=== PATIENT | female | born 1985 | race Caucasian/White ===

== ENCOUNTER 2016-07-22 21:15 | Emergency (ER) | payer OTHER, SELFPAY ==
--- NOTE | 2016-07-23 07:25 | RAD ---
RIGHT WRIST 3 VIEWS: Date: 07/22/16 FINDINGS: No fracture, dislocation, or carpal abnormality seen. All bones currently appear intact. IMPRESSION: No acute findings. POS: [facility]
== END 2016-07-22 21:47 | disposition home or self-care (01) ==
LOC: BURERS 21:15
DX: S63.501A Unspecified sprain of right wrist, initial encounter (principal); E03.9 Hypothyroidism, unspecified; F17.210 Nicotine dependence, cigarettes, uncomplicated; Z79.899 Other long term (current) drug therapy; W22.8XXA Striking against or struck by other objects, initial encounter
CPT/HCPCS: 99283

== ENCOUNTER 2016-08-04 11:23 | Outpatient (CLI) | payer OTHER ==
[2016-08-04 12:04] LABS: #Basophils 0.1 thou/uL (0.0-0.2); #Eosinphils 0.1 thou/uL (0.0-0.7); #Lymphocytes 3.1 thou/uL (1.20-3.40); #Monocytes 0.5 thou/uL (0.11-0.59); #Neutrophils 4.5 thou/uL (1.40-6.50); %Basophils 0.7 % (0.0-1.0); %Eosinophils 1.8 % (0.0-10.0); %Lymphocytes 37.7 % (21.0-51.0); %Monocytes 5.5 % (0.0-10.0); %Neutrophils 54.3 % (42.0-75.0); Hemoglobin 13.5 g/dL (12.0-16.0); Mean Corpuscular HGB CONC 32.9 g/dL (32.0-36.0); Mean Corpuscular Hemoglobin 28.5 pg (27.0-31.0); Mean Corpuscular Volume 86.7 fl (81.0-99.0); Mean Platelet Volume 9.6 fL (7.4-10.4); Platelet Count 234 thou/uL (130-400); RBC Distribution Width 12.2 % (11.5-14.5); Red Blood Cell (RBC) Count 4.73 mill/uL (4.20-5.40); White Blood Cell (WBC) Count 8.2 thou/uL (4.8-10.8)
[2016-08-04 12:13] LABS: ALT (SGPT) 130 U/L (0-55); AST (SGOT) 88 U/L (5-34); Albumin 4.3 g/dL (3.5-5.0); Alkaline Phosphatase 88 U/L (40-150); Anion Gap 13 mmol/L (10-20); BUN (Urea Nitrogen) 12 mg/dL (7.0-18.7); Bilirubin, Total 0.3 mg/dL (0.2-1.2); Calc. Creatinine Clearance 0 mL/min (70-130); Calcium 9.2 mg/dL (7.8-10.44); Carbon Dioxide 24 mmol/L (22-29); Cardiac Risk 3.7 (Less than 4.5); Chloride 108 mmol/L (98-107); Cholesterol 162 mg/dL (< 200 Desired); Estimated GFR-MDRD 90; Globulin 2.7 g/dL (2.4-3.5); Glucose 172 mg/dL (70-105); HDL Cholesterol 44 mg/dL (>60 Neg Risk); LDL Cholesterol, Calculated 67 mg/dL; Potassium 4.4 mmol/L (3.5-5.1); Sodium 141 mmol/L (136-145); Triglycerides 255 mg/dL (Less than 150)
[2016-08-04 12:34] LABS: Free T4 (Free Thyroxine) 0.91 ng/dL (0.70-1.48); Thyroid Stimulating Hormone 1.4396 uIU/mL (0.35-4.94)
== END 2016-08-04 11:24 | disposition home or self-care (01) ==
LOC: HPCALD 11:23
PROVIDERS: ATTEND Physician Assistant
DX: E03.9 Hypothyroidism, unspecified (principal); Z68.42 Body mass index [BMI] 45.0-49.9, adult
CPT/HCPCS: 36415; 80053; 80061; 84439; 84443; 85025

== ENCOUNTER 2016-09-06 10:04 | Outpatient (CLI) | payer OTHER ==
[2016-09-06 10:47] LABS: Hemoglobin A1c 6.1 % (4.0-6.0)
[2016-09-06 10:49] LABS: ALT (SGPT) 121 U/L (8-55); AST (SGOT) 72 U/L (5-34); Alkaline Phosphatase 90 U/L (40-150); Anion Gap 15 mmol/L (10-20); BUN (Urea Nitrogen) 16 mg/dL (7.0-18.7); Bilirubin, Total 0.4 mg/dL (0.2-1.2); Calc. Creatinine Clearance 0 mL/min (70-130); Calcium 8.9 mg/dL (7.8-10.44); Carbon Dioxide 23 mmol/L (22-29); Chloride 109 mmol/L (98-107); Estimated GFR-MDRD Greater than 90; Globulin 2.5 g/dL (2.4-3.5); Glucose 115 mg/dL (70-105); Potassium 4.5 mmol/L (3.5-5.1); Protein, Total 6.5 g/dL (6.0-8.3)
[2016-09-06 11:07] LABS: Sodium 142 mmol/L (136-145)
== END 2016-09-06 10:05 ==
LOC: HPCALD 10:04
PROVIDERS: ATTEND Physician Assistant
DX: R73.09 Other abnormal glucose (principal)
CPT/HCPCS: 36415; 80053; 83036

== ENCOUNTER 2017-04-07 09:01 | Emergency (ER) | payer OTHER ==
[2017-04-07 09:40] LABS: #Monocytes 0.3 thou/uL (0.11-0.59); #Neutrophils 2.8 thou/uL (1.40-6.50); %Basophils 0.5 % (0.0-1.0); %Eosinophils 0.4 % (0.0-10.0); %Lymphocytes 23.5 % (21.0-51.0); %Monocytes 7.5 % (0.0-10.0); %Neutrophils 68.1 % (42.0-75.0); Hemoglobin 14.2 g/dL (12.0-16.0); Mean Corpuscular HGB CONC 33.1 g/dL (32.0-36.0); Mean Corpuscular Hemoglobin 28.2 pg (27.0-31.0); Mean Corpuscular Volume 85.2 fl (81.0-99.0); Mean Platelet Volume 7.7 fL (7.4-10.4); Platelet Count 185 thou/uL (130-400); RBC Distribution Width 12.9 % (11.5-14.5); Red Blood Cell (RBC) Count 5.04 mill/uL (4.20-5.40)
[2017-04-07 09:48] LABS: Bilirubin Negative (Negative); Blood, Urine Negative (Negative); Clarity Slightly Cloudy (Clear); Glucose, Urine (Dipstick) Negative (Negative); Leukocyte Trace (Negative); Nitrite Negative (Negative); Protein, Urine (Dipstick) 100 mg/dL (Neg-Trace); Specific Gravity, Urine 1.025 (1.005-1.030); Urobilinogen 0.2 mg/dL (0.2-1.0); pH, Urine 6.5 (5.0-9.0)
[2017-04-07 09:51] LABS: ALT (SGPT) 180 U/L (8-55); AST (SGOT) 121 U/L (5-34); Alkaline Phosphatase 106 U/L (40-150); Anion Gap 15 mmol/L (10-20); BUN (Urea Nitrogen) 12 mg/dL (7.0-18.7); Bilirubin, Total 0.4 mg/dL (0.2-1.2); Calc. Creatinine Clearance 0 mL/min (70-130); Calcium 9.1 mg/dL (7.8-10.44); Carbon Dioxide 21 mmol/L (22-29); Chloride 105 mmol/L (98-107); Estimated GFR-MDRD Greater than 90; Globulin 3.7 g/dL (2.4-3.5); Glucose 168 mg/dL (70-105); Potassium 4.2 mmol/L (3.5-5.1); Protein, Total 7.7 g/dL (6.0-8.3); Sodium 137 mmol/L (136-145)
[2017-04-07 10:03] LABS: Bacteria/HPF 2+ HPF (None Seen); RBC/HPF None Seen HPF (0-3); Transitional Epithelial 0-3 HPF (0-3); WBC/HPF 0-3 HPF (0-3)
[2017-04-07 10:04] LABS: Crystals/HPF 1+ AMORPH URATES HPF (Negative)
== END 2017-04-07 10:12 | disposition home or self-care (01) ==
LOC: BURERS 09:01
DX: B34.9 Viral infection, unspecified (principal); E03.9 Hypothyroidism, unspecified; Z79.899 Other long term (current) drug therapy
CPT/HCPCS: 36415; 80053; 81003; 81015; 85025; 99284

== ENCOUNTER 2017-05-26 12:13 | Emergency (ER) | payer OTHER | END 2017-05-26 12:55 | disposition home or self-care (01) | LOC: BURERS 12:13 | DX: J11.1 Influenza due to unidentified influenza virus with other respiratory manifestations (principal); G43.909 Migraine, unspecified, not intractable, without status migrainosus; E03.9 Hypothyroidism, unspecified | CPT/HCPCS: 99283 ==

== ENCOUNTER 2017-08-03 13:54 | Outpatient (CLI) | payer OTHER ==
--- NOTE | 2017-08-03 19:55 | RAD ---
CHEST TWO VIEWS: 08/03/17 Comparison is made with the prior study of 06/10/[address] [facility]. The heart size is normal. There are no congestive changes or pleural effusions. No lobar infiltrate w as seen. The bony structures show no acute findings. The mediastinum was unremarkable. IMPRESSION: No acute thoracic finding. POS: [facility]
== END 2017-08-03 13:55 | disposition home or self-care (01) ==
LOC: BURRAD 13:54
PROVIDERS: ATTEND Physician Assistant
DX: J45.909 Unspecified asthma, uncomplicated (principal)
CPT/HCPCS: 71046

== ENCOUNTER 2017-12-08 20:34 | Emergency (ER) | payer OTHER ==
[2017-12-08] MEDS ORDERED: Lorazepam 2 MG/ML VIAL ONE (21:20)
[2017-12-08] MEDS ORDERED: Adacel (T-DAP) 0.5 ML VIAL ONE (21:21)
== END 2017-12-08 21:54 | disposition home or self-care (01) ==
LOC: BURERS 20:34
DX: S60.450A Superficial foreign body of right index finger, initial encounter (principal); G43.909 Migraine, unspecified, not intractable, without status migrainosus; E03.9 Hypothyroidism, unspecified; Z23 Encounter for immunization; W45.8XXA Other foreign body or object entering through skin, initial encounter
CPT/HCPCS: 64450; 90471; 90715; 96374; J2060

== ENCOUNTER 2018-09-16 19:23 | Emergency (ER) | payer OTHER ==
[~2018-09-16 19:23] MED LIST: Iopamidol 370 76% 125 ML VIAL FS ONE
[2018-09-16 19:51] LABS: Pregnancy Test - Urine (BHCG) Negative (Negative); Pregu Control Background? CLEAR/WHITE (CLR/WHITE); Pregu Control Bar Appear? YES (CONTROL BAR); Specific Gravity 1.018 (1.002-1.036)
[2018-09-16 19:52] LABS: Bilirubin Negative (Negative); Blood, Urine Negative (Negative); Clarity Clear (Clear); Glucose, Urine (Dipstick) Negative (Negative); Leukocyte Negative (Negative); Nitrite Negative (Negative); Protein, Urine (Dipstick) 100 mg/dL (Neg-Trace); Urobilinogen 0.2 mg/dL (0.2-1.0)
[2018-09-16 19:59] LABS: Bacteria/HPF 1+ HPF (None Seen); Other Microscopic Description 1+ MUCUS; RBC/HPF 0-3 HPF (0-3); Squamous Epithelial 0-3 HPF (0-3); WBC/HPF 0-3 HPF (0-3)
[2018-09-16] MEDS ORDERED: diphenhydrAMINE 12.5 MG/5 ML UDCUP ONE (20:27)
[2018-09-16] MEDS ORDERED: diphenhydrAMINE 50 MG/ML VIAL ONE (20:28)
[2018-09-16] MEDS ORDERED: Morphine 4 MG/ML VIAL ONE ×2 (20:28→21:29)
[2018-09-16 20:47] LABS: ALT (SGPT) 57 U/L (8-55); AST (SGOT) 36 U/L (5-34); Albumin 4.4 g/dL (3.5-5.0); Alkaline Phosphatase 120 U/L (40-150); Anion Gap 18 mmol/L (10-20); BUN (Urea Nitrogen) 16 mg/dL (7.0-18.7); Bilirubin, Total 0.3 mg/dL (0.2-1.2); Calc. Creatinine Clearance 0 mL/min (70-130); Calcium 9.8 mg/dL (7.8-10.44); Carbon Dioxide 21 mmol/L (22-29); Chloride 104 mmol/L (98-107); Estimated GFR-MDRD 73; Globulin 3.5 g/dL (2.4-3.5); Glucose 151 mg/dL (70-105); Potassium 4.2 mmol/L (3.5-5.1); Protein, Total 7.9 g/dL (6.0-8.3); Sodium 139 mmol/L (136-145)
--- NOTE | 2018-09-16 21:02 | RAD ---
TWO VIEWS OF THE CHEST: 09/16/18 COMPARISON: 08/03/17 HISTORY: Fever. FINDINGS: Two views of the chest show normal sized cardiomediastinal silhouette. There is no evidence of consol idation, mass, or pleural effusion. The bones are unremarkable. IMPRESSION: No evidence of acute cardiopulmonary disease. POS: [facility]
--- NOTE | 2018-09-16 21:34 | CT ---
Pre and postcontrast enhanced images abdomen and pelvis. HISTORY: Right-sided flank pain. Images are obtained before and after administration of IV contrast. Unfortunately oral contrast was n ot given. The lung bases are unremarkable. No evidence of free intraperitoneal air seen. The liver and spleen are unremarkable. The gallbladder is unremarkable. Pancreas unremarkable. Adrenal glands unremarkable. The kidneys are unremarkable. No evidence of periaortic lymphadenopathy seen. No dilated loops of small bowel seen. The colon demonstrates no evidence of abnormalities. The patient has had a hysterectomy. There is a 6.4 x 5.4 cm right adnexal lesion possibly representing a cyst or cystic lesion of the rig ht ovary. Ovarian torsion cannot be excluded correlate with clinical exam. IMPRESSION: Right ovarian cyst or cystic lesion. Gynecologic consultation recommended if clinically i ndicated.
[2018-09-16 21:59] LABS: #Eosinphils 0.2 thou/uL (0.0-0.7); #Lymphocytes 4.6 thou/uL (1.20-3.40); #Monocytes 0.5 thou/uL (0.11-0.59); #Neutrophils 6.4 thou/uL (1.40-6.50); %Basophils 0.4 % (0.0-1.0); %Lymphocytes 39.2 % (21.0-51.0); %Monocytes 4.2 % (0.0-10.0); %Neutrophils 54.2 % (42.0-75.0); Hemoglobin 12.6 g/dL (12.0-16.0); Mean Corpuscular HGB CONC 34.2 g/dL (32.0-36.0); Mean Corpuscular Hemoglobin 28.4 pg (27.0-31.0); Mean Corpuscular Volume 83.2 fL (78.0-98.0); Mean Platelet Volume 9.2 fL (7.4-10.4); Platelet Count 285 thou/uL (130-400); RBC Distribution Width 14.1 % (11.5-14.5); Red Blood Cell (RBC) Count 4.44 mill/uL (4.20-5.40); White Blood Cell (WBC) Count 11.8 thou/uL (4.8-10.8)
[2018-09-16] MEDS ORDERED: HYDROmorphone 0.5 MG/0.5 ML SYRINGE ONE (22:00)
== END 2018-09-16 23:15 | disposition short-term general hospital (02) ==
LOC: BURERS 19:23
DX: N73.9 Female pelvic inflammatory disease, unspecified (principal); F41.9 Anxiety disorder, unspecified
CPT/HCPCS: 71046; 74178; 80053; 81003; 81015; 81025; 83605; 85025; 94760; 96374; 96375; 96376; J1170; J1200; J2270; Q0163; Q9967

== ENCOUNTER 2019-02-26 13:47 | Emergency (ER) | payer OTHER ==
[2019-02-26] MEDS ORDERED: Metoclopramide HCl 10 MG/2 ML VIAL ONE (14:31)
[2019-02-26] MEDS ORDERED: diphenhydrAMINE 50 MG/ML VIAL ONE (14:31)
[2019-02-26] MEDS ORDERED: Ketorolac Tromethamine 30 MG/ML VIAL ONE (14:31)
[2019-02-26 14:34] LABS: #Basophils 0.1 thou/uL (0.0-0.2); #Eosinphils 0.2 thou/uL (0.0-0.7); #Lymphocytes 3.5 thou/uL (1.20-3.40); #Monocytes 0.5 thou/uL (0.11-0.59); #Neutrophils 5.8 thou/uL (1.40-6.50); %Eosinophils 2.2 % (0.0-10.0); %Lymphocytes 34.7 % (21.0-51.0); %Monocytes 4.5 % (0.0-10.0); %Neutrophils 57.5 % (42.0-75.0); Hemoglobin 13.4 g/dL (12.0-16.0); Mean Corpuscular HGB CONC 32.3 g/dL (32.0-36.0); Mean Corpuscular Hemoglobin 27.8 pg (27.0-31.0); Platelet Count 270 thou/uL (130-400); RBC Distribution Width 13.6 % (11.5-14.5); Red Blood Cell (RBC) Count 4.82 mill/uL (4.20-5.40)
[2019-02-26 14:49] LABS: ALT (SGPT) 73 U/L (8-55); AST (SGOT) 42 U/L (5-34); Albumin 4.1 g/dL (3.5-5.0); Alkaline Phosphatase 120 U/L (40-110); Anion Gap 15 mmol/L (10-20); BUN (Urea Nitrogen) 10 mg/dL (7.0-18.7); Bilirubin, Total 0.3 mg/dL (0.2-1.2); CK (CPK) 77 U/L (29-168); Calc. Creatinine Clearance 0 mL/min (70-130); Calcium 9.2 mg/dL (7.8-10.44); Carbon Dioxide 24 mmol/L (22-29); Chloride 103 mmol/L (98-107); Estimated GFR-MDRD 50; Globulin 3.3 g/dL (2.4-3.5); Glucose 213 mg/dL (70-105); Potassium 4.1 mmol/L (3.5-5.1); Protein, Total 7.4 g/dL (6.0-8.3); Sodium 138 mmol/L (136-145)
--- NOTE | 2019-02-26 21:55 | RAD ---
PORTABLE CHEST: Date: 02-26-19 An AP portable film at 1429 is compared with a 02-02-19 study. FINDINGS: The heart is normal in size and the lungs are clear. No infiltrate or effusion was seen. There is no vascular congestion or edema. IMPRESSION: No acute thoracic finding. POS: HOME
== END 2019-02-26 16:05 | disposition home or self-care (01) ==
LOC: BURERS 13:47
DX: F43.9 Reaction to severe stress, unspecified (principal); R07.89 Other chest pain; R51 Headache; E11.9 Type 2 diabetes mellitus without complications; F41.9 Anxiety disorder, unspecified; Z79.899 Other long term (current) drug therapy
CPT/HCPCS: 36415; 36416; 71045; 80053; 82550; 84443; 84484; 85025; 85379; 93005; 94760; 96361; 96365; 96375; J1200; J1885; J2765

== ENCOUNTER 2020-02-28 19:05 | Emergency (ER) | payer OTHER, SELFPAY ==
[2020-02-28] MEDS ORDERED: Lorazepam 2 MG/ML VIAL ONE (19:27)
--- NOTE | 2020-02-28 20:37 | RAD ---
PORTABLE CHEST: 02/28/20 An AP portable film at 195 is compared with an 02/26/19 study. There has bene no adverse interval change. The heart is normal in sizes and the lungs are clear. No a cute infiltrate or effusion was seen. Quite a view tiny calcified granulomas are scattered throughout the lungs. IMPRESSION: No acute finding. POS: HOME
== END 2020-02-28 20:43 | disposition home or self-care (01) ==
LOC: BURERS 19:05
DX: F41.9 Anxiety disorder, unspecified (principal); E11.9 Type 2 diabetes mellitus without complications; G43.909 Migraine, unspecified, not intractable, without status migrainosus; Z79.899 Other long term (current) drug therapy
CPT/HCPCS: 71045; 93005; 96374; J2060

== ENCOUNTER 2020-06-01 14:14 | Emergency (ER) | payer OTHER, SELFPAY ==
[2020-06-02 14:23] LABS: SARS-CoV-2 PCR by NAA Not Detected (NotDetected)
== END 2020-06-01 15:34 | disposition home or self-care (01) ==
LOC: BURERS 14:14
DX: Z20.822 Contact with and (suspected) exposure to COVID-19 (principal); E11.9 Type 2 diabetes mellitus without complications; G43.909 Migraine, unspecified, not intractable, without status migrainosus; Z79.899 Other long term (current) drug therapy
CPT/HCPCS: 87635; 99283; U0003; U0005

== ENCOUNTER 2020-06-27 12:11 | Emergency (ER) | payer OTHER, SELFPAY ==
[2020-06-27 21:54] LABS: SARS-CoV-2 PCR by NAA Not Detected (NotDetected)
== END 2020-06-27 13:10 | disposition home or self-care (01) ==
LOC: BURERS 12:11
DX: J02.0 Streptococcal pharyngitis (principal); Z20.822 Contact with and (suspected) exposure to COVID-19; E11.9 Type 2 diabetes mellitus without complications; G43.909 Migraine, unspecified, not intractable, without status migrainosus; Z87.442 Personal history of urinary calculi; Z79.01 Long term (current) use of anticoagulants
CPT/HCPCS: 87430; 87635; 99283; U0003; U0005

== ENCOUNTER 2020-10-06 13:24 | Emergency (ER) | payer OTHER, SELFPAY ==
[2020-10-06] MEDS ORDERED: Promethazine HCl 25 MG/ML VIAL ONE (13:37)
[2020-10-07 11:08] LABS: SARS-CoV-2 PCR by NAA DETECTED (NotDetected)
== END 2020-10-06 14:42 | disposition home or self-care (01) ==
LOC: BURERS 13:24
DX: U07.1 COVID-19 (principal); E11.9 Type 2 diabetes mellitus without complications; G43.909 Migraine, unspecified, not intractable, without status migrainosus
CPT/HCPCS: 99283; J0500; J2550; U0003; U0005

== ENCOUNTER 2021-05-18 07:43 | Emergency (ER) | payer BC, SELFPAY ==
[2021-05-18 14:47] LABS: SARS-CoV-2 PCR by NAA DETECTED (NotDetected)
== END 2021-05-18 08:22 | disposition home or self-care (01) ==
LOC: BURERS 07:43
DX: U07.1 COVID-19 (principal); E11.9 Type 2 diabetes mellitus without complications; G43.909 Migraine, unspecified, not intractable, without status migrainosus
CPT/HCPCS: 87804; 99283; U0003; U0005

== ENCOUNTER 2021-11-22 12:22 | Emergency (ER) | payer BC ==
[2021-11-22] MEDS ORDERED: diphenhydrAMINE 50 MG/ML VIAL ONE (12:45)
[2021-11-22] MEDS ORDERED: Metoclopramide HCl 10 MG/2 ML VIAL ONE (12:45)
[2021-11-22 13:05] LABS: #Basophils 0.1 thou/uL (0.0-0.2); #Eosinphils 0.2 thou/uL (0.0-0.7); #Lymphocytes 3.1 thou/uL (1.20-3.40); #Monocytes 0.5 thou/uL (0.11-0.59); #Neutrophils 4.6 thou/uL (1.40-6.50); %Basophils 1.1 % (0.0-1.0); %Eosinophils 2.9 % (0.0-10.0); %Lymphocytes 36.7 % (21.0-51.0); %Monocytes 5.3 % (0.0-10.0); Hemoglobin 13.5 g/dL (12.0-16.0); Mean Corpuscular HGB CONC 33.3 g/dL (32.0-36.0); Mean Corpuscular Hemoglobin 29.7 pg (27.0-31.0); Mean Corpuscular Volume 89.1 fL (78.0-98.0); Mean Platelet Volume 8.9 fL (7.4-10.4); Platelet Count 218 thou/uL (130-400); RBC Distribution Width 12.2 % (11.5-14.5); Red Blood Cell (RBC) Count 4.55 mill/uL (4.20-5.40); White Blood Cell (WBC) Count 8.4 thou/uL (4.8-10.8)
[2021-11-22 13:20] LABS: ALT (SGPT) 22 U/L (8-55); AST (SGOT) 23 U/L (5-34); Alkaline Phosphatase 75 U/L (40-110); Anion Gap 14 mmol/L (10-20); BUN (Urea Nitrogen) 11 mg/dL (7.0-18.7); Bilirubin, Total 0.4 mg/dL (0.2-1.2); Calc. Creatinine Clearance 0 mL/min (70-130); Calcium 9.2 mg/dL (7.8-10.44); Carbon Dioxide 22 mmol/L (22-29); Chloride 107 mmol/L (98-107); Estimated GFR 116; Glucose 102 mg/dL (70-105); Potassium 4.4 mmol/L (3.5-5.1); Sodium 139 mmol/L (136-145)
[2021-11-22] MEDS ORDERED: Magnesium 2 GM/50 ML BAG (IN WATER) ONE (13:48)
[2021-11-22] MEDS ORDERED: methylPREDNISolone Sod Succ/PF 125 MG/2 ML VIAL ONE (13:48)
== END 2021-11-22 15:44 | disposition home or self-care (01) ==
LOC: BURERS 12:22
DX: G43.909 Migraine, unspecified, not intractable, without status migrainosus (principal); F17.210 Nicotine dependence, cigarettes, uncomplicated
CPT/HCPCS: 80053; 85025; 96361; 96365; 96375; J1200; J2765; J2930; J3475

== ENCOUNTER 2023-01-04 06:25 | Emergency (ER) | payer BC, SELFPAY ==
[2023-01-04] MEDS ORDERED: Ketorolac Tromethamine 30 MG/ML VIAL ONE (06:49)
== END 2023-01-04 07:04 | disposition home or self-care (01) ==
LOC: BURERS 06:25
DX: S29.011A Strain of muscle and tendon of front wall of thorax, initial encounter (principal); E66.9 Obesity, unspecified; F17.210 Nicotine dependence, cigarettes, uncomplicated; X50.0XXA Overexertion from strenuous movement or load, initial encounter; Z79.899 Other long term (current) drug therapy
CPT/HCPCS: 96372; J1885